=== PATIENT | male | born 1950 | race Caucasian/White ===

== ENCOUNTER 2022-01-08 10:31 | Outpatient (CLI) | payer MEDICARE, BC, SELFPAY ==
--- NOTE | ~2022-01-08 | CT_ITS ---
EXAMINATION: CT abdomen pelvis w con DATE: 01/08/2022 11:23 INDICATION: Prostate cancer TECHNIQUE: Computed tomography (CT) of the abdomen and pelvis was performed with 100 CC Omnipaque 300 intravenous contrast. Automated exposure control and iterative reconstruction technique were employe d. Exam dose: 1111.73 mGy-cm total exam DLP. COMPARISON: 10/12/2015 cystogram FINDINGS: The lung bases are clear. Normal heart size. No pericardial or pleural effusion. Very small sliding hiatal hernia. Status post cholecystectomy. This likely accounts for mild prominence of the intrahepatic bile ducts. Common bile duct is of normal caliber. No hepatic, splenic, pancreatic or adrenal space-occupying mass lesion. 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 N o urinary tract calculus or hydroureteronephrosis. Normal caliber of the abdominal aorta. No intraperitoneal or retroperitoneal or pelvic mass lesion or adenopathy or ascites. The prostate is absent. The urinary bladder appears relatively evacuated, otherwise unremarkable. Normal appendix. Innumerable diverticula throughout the sigmoid and descending colon, with much lesser involvement of the right colon; no CT evidence of diverticulitis. Anterior wall of a nonobstructed small bowel loop enters a very small supraumbilical midline ventral abdominal wall hernia. Small fat-containing umbilical hernia. No suspicious osteolytic or osteoblastic lesions are noted. Diffuse idiopathic skeletal hyperostosis of the thoracic spine. Severe degenerative disc disease at L5-S1. Bilateral hip osteoarthritis. IMPRESSION: Status post prostatectomy; no metastatic disease or suspicious osteosclerotic lesions ar e noted Very small sliding hiatal hernia Small fat-containing umbilical hernia Very small supraumbilical ventral abdominal wall hernia containing the anterior wall of a nonobstruct ed small bowel loop Status post cholecystectomy Diverticulosis of the colon; no CT evidence of diverticulitis Reviewed, dictated and finalized at [facility]. Reviewed, dictated and finalized at [facility]. IMPRESSION: Status post prostatectomy; no metastatic disease or suspicious ost eosclerotic lesions are noted Very small sliding hiatal hernia Small fat-containing umbilical hernia Very small supraumbilical ventral abdominal wall hernia containing the anterior wall of a nonobstructed small bowel loop Status post cholecystectomy Diverticulosis of the colon; no CT evidence of diverticulitis
[2022-01-08 11:02] LABS: Estimated Glomerular Filt Rate > 60
== END 2022-01-08 10:32 | disposition home or self-care (01) ==
PROVIDERS: Visit Provider Urology
DX: C61 Malignant neoplasm of prostate (principal); Z90.49 Acquired absence of other specified parts of digestive tract; K44.9 Diaphragmatic hernia without obstruction or gangrene; M48.14 Ankylosing hyperostosis [Forestier], thoracic region; K42.9 Umbilical hernia without obstruction or gangrene; M16.0 Bilateral primary osteoarthritis of hip; M47.817 Spondylosis without myelopathy or radiculopathy, lumbosacral region; Z85.46 Personal history of malignant neoplasm of prostate; K57.30 Diverticulosis of large intestine without perforation or abscess without bleeding
CPT/HCPCS: 74177; Q9967